=== PATIENT | female | born 1960 | race Caucasian/White ===

== ENCOUNTER 2017-02-04 11:17 | Emergency (ER) | payer MEDICARE, BC ==
[~2017-02-04] VITALS: Ht 165.1 cm; Wt 55.8 kg
--- NOTE | ~2017-02-04 | CR63 ---
[facility] A Service of [facility] & [facility] RADIOLOGY TEXT RESULTS PATIENT: LISA ANNA LOCATION: [facility] : 60 UNIT #: [id number] AGE: [address]: DOROTHEA DOAN SEX: F ORDER DR: [id number] [facility] [address] [place], [place] [address] [id number] E MR#: [id number] Acc #: [id number] NAME: LISA ANNA. : 1960 SEX: F STUDY DATE/TIME: 02/04/2017 15:06 UNIT: [facility] ROOM: STUDY DESCRIPTION: CR Chest 2 View Attending Physician: Dorothea Doan Aprn Ordering Physician: Dorothea Doan Aprn Primary Care Physician: Jose Vieira Jr., M.D. MEDICAL IMAGING REPORT This report is preliminary unless electronic signature is present EXAM Two-view chest, 02/04/2017. INDICATIONS 56-year-old female with a cough, congestion, sore throat, symptoms 2 weeks, tobacco abuse over 25 years, COPD. TECHNIQUE Two-view chest compared to 07/10/2008. FINDINGS Mild S-shaped scoliosis of the cervicothoracic and thoracolumbar spine. There is a rotational component to the thoracolumbar curve. Cardiac silhouette within normal limits. Vascularity unremarkable. Lungs hyperinflated. Lungs are otherwise clear. No pneumothorax. Sequela of augmentation mammoplasty bilaterally. IMPRESSION 1. Negative chest. Scoliosis. Bilateral breast implants. Dictated by... Waqas Rodriguez M.D. THIS IS AN ELECTRONICALLY VERIFIED REPORT Waqas Rodriguez M.D. at 02/06/2017 3:28 PM Matty TD: 02/05/2017 09:32 JOB #: [id number] MEDICAL IMAGING REPORT Page 1 of 1 COPY
--- NOTE | ~2017-02-04 | EKG ---
PATIENT: LISA ANNA UNIT #: [id number] Ventricular Rate: 66 BPM Atrial Rate: 66 BPM P-R Interval: 134 ms QRS Duration: 96 ms Q-T Interval: 400 ms QTC Calculation(Bezet): 419 ms P [place]: 64 degrees Calculated R [place]: 98 degrees Calculated T [place]: 68 degrees Diagnosis Line: Normal sinus rhythm Diagnosis Line: Possible Left atrial enlargement Diagnosis Line: Rightward axis Diagnosis Line: Incomplete right bundle branch block Diagnosis Line: Borderline ECG Diagnosis Line: No previous ECGs available Diagnosis Line: Confirmed by EUGENE PIEDRA MD ([id number]) on Diagnosis Line: 02/05/2017 12:35:03 PM INTERPRETING MD: DOROTHEA SHAH
[~2017-02-04 11:17] MED LIST: ABILIFY PO; ALBUTEROL INH; CRESTOR10 MG PO; KLONOPIN PO; LASIX PO; LEVOTHYROXINE PO; LEXAPRO PO; LISINOPRIL PO; NORCO 10-325 TA1 TAB PO; PHENERGAN SUPP25 M1 PR; PHENERGAN25 M1 DOB; POTASSIUM CL PO; PREVACID PO; PROTONIX PO; RESTORIL PO; SYMBICORT INHALER INH; WELLBUTRIN PO; ZANAFLEX PO
== END 2017-02-04 16:14 | disposition home or self-care (01) ==
LOC: CED 11:17 → CFTX 11:17
DX: J06.9 Acute upper respiratory infection, unspecified (principal); J44.9 Chronic obstructive pulmonary disease, unspecified; E78.5 Hyperlipidemia, unspecified; I10 Essential (primary) hypertension; F17.210 Nicotine dependence, cigarettes, uncomplicated; Z90.89 Acquired absence of other organs; Z98.51 Tubal ligation status; Z98.82 Breast implant status; Z88.5 Allergy status to narcotic agent
CPT/HCPCS: 71020; 87651; 93005; 99285